=== PATIENT | female | born 1995 | race African-American/Black ===

== ENCOUNTER 2018-11-12 14:49 | Outpatient (CLI) | END 2018-11-12 14:50 | disposition home or self-care (01) | LOC: LAB 14:49 | PROVIDERS: ATTEND Nurse Practitioner Family | DX: Z00.00 Encounter for general adult medical examination without abnormal findings (principal); N92.6 Irregular menstruation, unspecified; R35.0 Frequency of micturition; R11.0 Nausea; N64.4 Mastodynia | CPT/HCPCS: 36415; 80053; 80061; 84443; 84703; 85025 ==